=== PATIENT | male | born 1950 | race African-American/Black ===

== ENCOUNTER → 2016-11-03 | Day surgery (SDC) | payer MEDICARE, BC ==
[~2016-11-03] MED LIST: BUPIVACAINE/EPINEPHRINE 0.25% PF 30 ML VIAL ONE; KETOROLAC TROMETHAMINE 30 MG/ML (IVP) VIAL IV PUSH ONE; LACTATED RINGER'S 1000 ML INJ 1,000 ML ONE; MIDAZOLAM HCL 2 MG/2 ML VIAL ONE; ONDANSETRON HCL 4 MG/2 ML VIAL IV PUSH ONE; PROPOFOL 200 MG/20 ML AMP IV ONE; Z.0.NO CURRENT MEDS; ceFAZolin 2 GM PREMIX 50 ML ONE; oxyCODONE/ACETAMINOPHEN 5 MG/325 MG TAB ONE
--- NOTE | 2016-11-06 06:07 | TN ---
cc: MANDEEP RIBERA MD DATE OF SURGERY 11/03/2016 PREOPERATIVE DIAGNOSIS Bilateral inguinal hernias. POSTOPERATIVE DIAGNOSES Bilateral direct inguinal hernias. Umbilical hernia. PROCEDURE PERFORMED Bilateral laparoscopic inguinal hernia repair, TEPP. Open umbilical hernia repair. SURGEON Dr. Mandeep Ribera [employer] See OR sheet. ANESTHESIA GETA. IV FLUIDS See anesthesia sheet. DRAINS None. COMPLICATIONS None. WOUND CLASSIFICATION Clean. FINDINGS Bilateral direct inguinal hernias. Small umbilical hernia at trocar site. ESTIMATED BLOOD LOSS 5 cc. SPECIMENS None. INDICATIONS The patient is a 66-year-old male who presented to the office for evaluation of bilateral inguinal hernias. He notes that inguinal hernias were increasing in size and causing increasing pain. Therefore, a decision was made for operative intervention including laparoscopic bilateral inguinal hernia repair. DETAILS OF PROCEDURE The patient was taken to the operating suite, placed in supine position. He was prepped and draped in the usual sterile fashion after induction of general endotracheal anesthesia. Brief time-out done stating correct patient, procedure and surgical site. We were all in agreement with this. Attention first directed to the inferior umbilicus. A small linear incision was made with an 11 blade. Further dissection was done with a hemostat and an [employer] retractor. This was down to the anterior fascia. A small deshawn was made in the antral portion of the rectus fascia. The rectus muscle was then identified. S retractor and a Mignon clamp was used to dissect posterior to the rectus muscle and anterior to the peritoneum. Underneath the rectus muscle, the balloon dissector was placed and inserted downward toward the pubic symphysis. The insufflation balloon was hand-pumped under direct visualization with a 10-mm scope. This showed good dissection of the bilateral preperitoneal space. Balloon was then removed and a stay suture was placed on the anterior fascia, 0 Vicryl. Next, a Ciera trocar blue port was placed in the peritoneal space. The preperitoneal space was insufflated to 11-mm pneumoperitoneum. A 30-degrees scope was then placed, two additional trocars placed in midline, one suprapubic, followed by another 5-mm in between these two. A [place] grasper and DeBakey endo-grasper were used. The epigastric vessels were noted to be anterior to the abdominal wall. The balloon had dissected a significant portion of the intraperitoneal dissection. Further dissection to clean and identified the direct hernia sacs were done. The hernias were completely reduced. The peritoneum was dissected backward. The gonadal vessels and vas deferens were elevated and dissection further of these structures was done to create a posterior window. Once we had good identification of all structures and a good landing zone for placement of mesh and the sacs were completely dissected down, a 6 x 6 [employer] lightweight mesh was obtained and cut to appropriate size and placed through the 10-mm trocar and inserted. The stay suture was placed prior to placement in the port. The mesh was then positioned in place using the trocar and graspers. Once adequately positioned and covering the direct and indirect hernia defects and around the cord structures, tacker was used for approximation. Next, the cut portion of the mesh was also inserted and placed superiorly to reinforce the first mesh. This was again tacked in place. Once the appropriate indirect inguinal space was completely covered by the mesh and we were content with this - this was done on the left side initially - further dissection was then directed over to the right side where similar steps were carried out in terms of mobilizing the cord structures, identifying the vas and creating a posterior window. Again a second mesh was cut to appropriate size and inserted through the 10-mm trocar. This was placed around the vessels recreating the inguinal ring on the right side and covering the direct inguinal defect. This was again tacked in place. Once we were happy with this, the second portion of the mesh was then reinserted for reinforcement and placed superiorly. Local anesthetic was injected. Next the abdomen was desufflated. The ports were removed. The anterior fascia was repaired with 0 Vicryl in [id number] fashion. Then attention was directed toward the umbilicus. We noted a small umbilical hernia with incarcerated omentum. The umbilical stalk was dissected out. The hernia sac was completely dissected out and resected. Contents were reduced. Two [id number] 0 Prolene sutures were placed to reapproximate the umbilical hernia. Next, the umbilicus was tacked down using 0 Vicryl suture. Next, the skin was then closed with 4-0 Monocryl to all port sites. Sterile dressings were then placed. All lap and instrument counts were correct at the end of the procedure. No intraoperative complications. The patient was extubated and taken stable to PACU. MD MARTÍNEZ Bernardo/REFUGIO /10:32 PM /5:47 AM
== END | disposition home or self-care (01) ==
LOC: ESDC 06:32
PROVIDERS: ATTEND Surgery
DX: K40.20 Bilateral inguinal hernia, without obstruction or gangrene, not specified as recurrent (principal); K42.9 Umbilical hernia without obstruction or gangrene
CPT/HCPCS: 00750; 00840; 49585; 49650; C1727; C1781; J0690; J1885; J2250; J2405; J3010; J7120